=== PATIENT | female | born 1940 | race African-American/Black ===

== ENCOUNTER 2017-08-21 16:08 | Emergency (ER) | payer MEDICARE ==
[~2017-08-21] VITALS: Ht 162.6 cm; Wt 69.0 kg
[~2017-08-21 16:08] MED LIST: AMLODIPINE BESY10 MG; AMLODIPINE BESY10 MG PO; AMOXICILLIN500 MG PO; BENZONATATE200 MG PO; CALCIUM 600 +600 MG; CALCIUM D- OR; CIPROFLOXACN500 MG PO; DIABETA1.25 MG OR; FOSINOPRIL10 MG OR; FOSINOPRIL40 MG PO; GLIPIZIDE5 M2 PO; GLYB/METFOR1 PO; HYDROCHLOROT25 MG PO; IRON FORMULA PO; METFORMIN500 MG PO; MUCINEX600 MG PO; MULT VITAMIN OR; MULTIVITAMI1 PO; NAPROSYN500 MG OR; PRAVACHOL10 MG OR; ZOCOR20 M1 PO; [UNRECOGNIZED DRUG - OTHER]; [UNRECOGNIZED DRUG - OTHER] SC
[2017-08-21 17:37] LABS: HEMATOCRIT 36.5 % (37.0-47.0); HEMOGLOBIN 11.7 g/dl (12.0-16.0); IMMATURE GRANULOCYTES 0.3 % (0.0-1.0); MEAN CELL VOLUME 89.2 fL CALC (80.0-100.0); MEAN CORPUSCULAR HGB 28.6 pG CALC (26.0-32.0); MEAN CORPUSCULAR HGB CONC 32.1 g/L CALC (32.0-36.0); NEUT# 7.7 thou/uL (2.00-7.15); RED BLOOD COUNT 4.09 mill/uL (4.20-5.60); RED CELL DISTRI WIDTH 12.4 % (11.5-15.5)
[2017-08-21 17:38] LABS: URINE BLOOD DIPSTICK TRACE-LYSED (NEGATIVE); URINE COLOR YELLOW; URINE GLUCOSE - DIPSTICK NEGATIVE (NEGATIVE); URINE KETONE TRACE mg/dL (NEGATIVE); URINE LEUK ESTERASE NEGATIVE (NEGATIVE); URINE NITRITE - DIPSTICK NEGATIVE (Negative); URINE PROTEIN - DIPSTICK >=300 mg/dL (NEG-TRACE); URINE SPECIFIC GRAVITY >=1.030; URINE UROBILINOGEN - DIPSTICK 0.2 E.U./dL (0.2)
[2017-08-21 17:39] LABS: URINE BILIRUBIN - DIPSTICK NEGATIVE (NEGATIVE); URINE CLARITY CLEAR
[2017-08-21 17:46] LABS: URINE SQUAMOUS EPITHELIAL CELL FEW EPI/hpf (0-FEW)
[2017-08-21 17:55] LABS: PROTHROMBIN TIME 10.9 SECONDS (9.0-12.5)
[2017-08-21 17:56] LABS: ALBUMIN 4.6 g/dL (3.2-5.0); BILIRUBIN, TOTAL 0.6 mg/dL (0.0-1.4); POTASSIUM 4.2 mmol/l (3.5-5.1); TOTAL PROTEIN 7.8 g/dL (6.3-8.2)
[2017-08-21 17:57] LABS: CREATININE 1.2 mg/dL (0.5-1.0)
[2017-08-21] MEDS ORDERED: PREVACID30 M1 PO (19:09)
[2017-08-21 19:10] VITALS: BP 188/79
== END 2017-08-21 19:37 | disposition left against medical advice (07) ==
LOC: ED 16:08
PROVIDERS: Emergency Medicine
DX: K62.5 Hemorrhage of anus and rectum (principal); K64.8 Other hemorrhoids; I10 Essential (primary) hypertension; Z91.19 Patient's noncompliance with other medical treatment and regimen; R11.2 Nausea with vomiting, unspecified; R10.13 Epigastric pain
CPT/HCPCS: Q9967

== ENCOUNTER → 2018-08-13 | Outpatient (REF) | payer MEDICARE ==
[~2018-08-13] MED LIST changes: +PREVACID30 M1 PO
[2018-08-13 10:15] LABS: HEMATOCRIT 32.5 % (37.0-47.0); HEMOGLOBIN 10.3 g/dl (12.0-16.0); MEAN CELL VOLUME 92.6 fL CALC (80.0-100.0); MEAN CORPUSCULAR HGB 29.3 pG CALC (26.0-32.0); MEAN CORPUSCULAR HGB CONC 31.7 g/L CALC (32.0-36.0); RED BLOOD COUNT 3.51 mill/uL (4.20-5.60); RED CELL DISTRI WIDTH 12.3 % (11.5-15.5)
[2018-08-13 11:53] LABS: ALBUMIN 4.6 g/dL (3.2-5.0); ALKALINE PHOSPHATASE 49 u/l (38-126); ANION GAP 17 (6-22 (CALC)); BILIRUBIN, TOTAL 0.5 mg/dL (0.0-1.4); BUN 18 mg/dL (8-23); BUN/CREATININE RATIO 19 (12-20 (CALC)); CALCULATED LDLCHOLESTEROL 106 mg/dL (62-129 (CALC)); CARBON DIOXIDE 24 mmol/l (22-30); CHLORIDE 103 mmol/l (95-108); CHOLESTEROL HDL RATIO 2.9 (<4.4 (CALC)); CREATININE 0.9 mg/dL (0.5-1.0); GFR 60 ML/MIN (>=60 (CALC)); GFR FOR AFR.AMER. > 60 ML/MIN (>=60 (CALC)); HDL CHOLESTEROL 68 mg/dL (>=40); POTASSIUM 4.2 mmol/l (3.5-5.1); SGOT/AST 25 u/l (9-36); SODIUM 140 mmol/l (137-146); TOTAL CHOLESTEROL 194 mg/dl (0-199); TOTAL PROTEIN 7.9 g/dL (6.3-8.2); TOTAL TRIGLYCERIDES 103 mg/dl (30-149); VLDL CHOLESTROL 21 mg/dl (0-48 (CALC))
[2018-08-13 12:07] LABS: TSH, 3RD GENERATION 1.09 uIU/mL (0.47 - 4.68)
== END | disposition home or self-care (01) ==
LOC: LAB 09:35
PROVIDERS: ATTEND Nurse Practitioner
DX: E11.29 Type 2 diabetes mellitus with other diabetic kidney complication (principal); I10 Essential (primary) hypertension

== ENCOUNTER 2019-08-30 | Emergency (ER) | payer MEDICARE ==
[2019-08-30 19:49] LABS: HEMATOCRIT 32.8 % (37.0-47.0); HEMOGLOBIN 10.1 g/dl (12.0-16.0); IMMATURE GRANULOCYTES 0.1 % (0.0-5.0); MEAN CELL VOLUME 94.8 fL CALC (80.0-100.0); MEAN CORPUSCULAR HGB 29.2 pG CALC (26.0-32.0); MEAN CORPUSCULAR HGB CONC 30.8 g/L CALC (32.0-36.0); NEUT# 5.19 thou/uL (2.00-7.15); RED BLOOD COUNT 3.46 mill/uL (4.20-5.60); RED CELL DISTRI WIDTH 12.3 % (11.5-15.5)
[2019-08-30 20:07] LABS: CREATININE 1.2 mg/dL (0.5-1.0); POTASSIUM 4.6 mmol/l (3.5-5.1)
[2019-08-30] MEDS ORDERED: TRAMADOL HCL50 MG PO (20:25)
== END 2019-08-30 20:53 | disposition home or self-care (01) ==
PROVIDERS: Family Medicine
PROC: 0HQ1XZZ Repair Face Skin, External Approach (ICD-10-PCS; principal; 2019-08-30)
DX: S01.81XA Laceration without foreign body of other part of head, initial encounter (principal); S52.502A Unspecified fracture of the lower end of left radius, initial encounter for closed fracture; S40.012A Contusion of left shoulder, initial encounter; I10 Essential (primary) hypertension; E11.9 Type 2 diabetes mellitus without complications; W01.0XXA Fall on same level from slipping, tripping and stumbling without subsequent striking against object, initial encounter

== ENCOUNTER 2021-07-16 17:35 | Emergency (ER) | payer MEDICARE ==
[~2021-07-16] VITALS: Ht 162.6 cm; Wt 60.0 kg
[~2021-07-16 17:35] MED LIST changes: +TRAMADOL HCL50 MG PO
[2021-07-16 18:41] VITALS: BP 183/76
== END 2021-07-16 21:45 | disposition home or self-care (01) ==
LOC: ED 17:35
DX: U07.1 COVID-19 (principal); I10 Essential (primary) hypertension; E11.9 Type 2 diabetes mellitus without complications; Z79.84 Long term (current) use of oral hypoglycemic drugs

== ENCOUNTER 2022-04-30 04:26 | Emergency (ER) | payer MEDICARE ==
[~2022-04-30] VITALS: Ht 162.6 cm; Wt 61.3 kg
[2022-04-30] MEDS ORDERED: CLONIDINE0.1 MG PO (04:46)
[2022-04-30 05:12] LABS: HEMOGLOBIN 9.6 g/dl (12.0-16.0); IMMATURE GRANULOCYTES 0.1 % (0.0-5.0); MEAN CELL VOLUME 94.5 fL CALC (80.0-100.0); MEAN CORPUSCULAR HGB 29.3 pG CALC (26.0-32.0); NEUT# 3.39 thou/uL (2.00-7.15); RED BLOOD COUNT 3.28 mill/uL (4.20-5.60); RED CELL DISTRI WIDTH 12.1 % (11.5-15.5)
[2022-04-30 05:14] LABS: URINE BILIRUBIN - DIPSTICK NEGATIVE (NEGATIVE); URINE BLOOD DIPSTICK SMALL (NEGATIVE); URINE COLOR YELLOW; URINE GLUCOSE - DIPSTICK NEGATIVE (NEGATIVE); URINE KETONE NEGATIVE (NEGATIVE); URINE LEUK ESTERASE NEGATIVE (NEGATIVE); URINE PROTEIN - DIPSTICK >=300 mg/dL (NEG-TRACE); URINE UROBILINOGEN - DIPSTICK 0.2 E.U./dL (0.2)
[2022-04-30 05:15] LABS: URINE NITRITE - DIPSTICK NEGATIVE (Negative)
[2022-04-30 05:25] LABS: URINE AMORPH SEDIMENT FEW hpf (NONE-FEW); URINE BACTERIA FEW hpf; URINE MUCUS FEW hpf (NONE-FEW); URINE SQUAMOUS EPITHELIAL CELL FEW EPI/hpf (0-FEW)
[2022-04-30 05:32] LABS: D-DIMER 1.31 mg/L (0.19-0.60); PROTHROMBIN TIME 10.4 SECONDS (9.0-12.5)
[2022-04-30 05:38] LABS: CREATININE 1.6 mg/dL (0.5-1.0); POTASSIUM 4.4 mmol/l (3.5-5.1); TOTAL PROTEIN 7.2 g/dL (6.3-8.2)
[2022-04-30 05:39] LABS: BILIRUBIN, TOTAL 0.5 mg/dL (0.0-1.4)
[2022-04-30] MEDS ORDERED: LASIX20 MG PO (06:33)
[2022-04-30] MEDS ORDERED: POTASSIUM CHLO20 ME1 PO (06:33)
[2022-04-30 06:39] VITALS: BP 263/70
== END 2022-04-30 06:48 | disposition home or self-care (01) ==
LOC: ED 04:26
PROVIDERS: Family Medicine
DX: J81.1 Chronic pulmonary edema (principal); I10 Essential (primary) hypertension; E11.9 Type 2 diabetes mellitus without complications; Z79.84 Long term (current) use of oral hypoglycemic drugs; Z20.822 Contact with and (suspected) exposure to COVID-19